=== PATIENT | female | born 1955 | race Caucasian/White ===

== ENCOUNTER 2019-08-19 20:12 | Emergency (ER) | payer SELFPAY ==
[~2019-08-19] VITALS: Ht 165.1 cm; Wt 56.0 kg
--- NOTE | 2019-08-19 20:52 | NUR ---
THIS IS A 64Y F THAT COMES IN TONIGHT FOLLOWING HER DAILY TX FOR COLORECTAL CA. PT GOT LABS DRAWN TODAY MD CALLED WITH RESULTS OF LOW H&H PT SENT HERE FOR BLOOD TRANSFUSION BY ONCOLOGIST. PER PT HER BP NORMALLY RUNS 80'S /40'S AND SHE HAS GOTTEN FLUID ALL DAY AND DOES NOT WANT ANY MORE FLUID STS SHE JUST NEEDS BLOOD TRANSFUSION. PT CONNECTED TO MONITORING, AT BEDSIDE, PIV STARTED LABS DRAWN AND SENT.
[2019-08-19 21:12] LABS: ALBUMIN 2.8 g/dL (3.4-5.0); ANION GAP 7 mmol/L (5-15); CALCIUM 7.6 mg/dL (8.5-10.1); CHLORIDE 105 mmol/L (98-107)
[2019-08-19 21:13] LABS: CREATININE 0.72 mg/dL (0.55-1.02)
[2019-08-19 21:26] LABS: MEAN CORPUSCULAR HEMOGLOBIN 26.2 pg (27.0-34.8); MEAN CORPUSCULAR HGB CONC 31.7 g/dL (32.4-35.8); MEAN CORPUSCULAR VOLUME 82.7 fL (80-100); MEAN PLATELET VOLUME 7.9 fL (7.4-10.4); PLATELET COUNT 465 x10^3/uL (130-400); RED BLOOD COUNT 2.48 x10^6/uL (3.82-5.3); RED CELL DISTRIBUTION WIDTH 20.6 % (9.6-15.2)
--- NOTE | 2019-08-19 21:27 | NUR ---
LAB CALLED WITH CRITICAL H&H AT THIS TIME MD TO BE UPDATED
--- NOTE | 2019-08-19 21:43 | NUR ---
ERP AT BEDSIDE TO ASSESS PT AND DISCUSS POC AND BLOOD TRANSFUSION PROCESS/ RISKS. CONSENT OBTAINED AT THIS TIME. PT CONTINUES TO HAVE A FEVER AT 101 PT AGREES TO CULTURES TO BE DRAWN BUT DOES NOT AGREE TO COVID SWAB, PT ALSO STILL HYPOTENSIVE ERP AWARE, PT DOES NOT WANT FLUID AT ALL. ERP AWARE.
--- NOTE | 2019-08-19 21:48 | NUR ---
PT MURALI DANIELS, MD TO BEDSIDE TO DISCUSS CONCERNS AT THIS TIME
[2019-08-19 21:49] LABS: BASOPHILS % (AUTO) 0 % (0-1); EOSINOPHILS % (AUTO) 0 % (1-7); LYMPHOCYTES # (AUTO) 0.24 x10^3/uL (1-3.4); LYMPHOCYTES % (AUTO) 2 % (22-44); MD SCAN; MONOCYTES # (AUTO) 0.01 x10^3/uL (0.2-0.8); MONOCYTES % (AUTO) 0 % (2-9); NEUTROPHILS # (AUTO) 9.91 x10^3/uL (1.8-6.8); NEUTROPHILS % (AUTO) 98 % (42-75)
[2019-08-19 22:16] VITALS: BP 78/41
--- NOTE | 2019-08-19 22:18 | NUR ---
BLOOD STARTED, VERIFIED WITH JULIO SHERWOOD. VSS, BILLY PT EDUCATED ON S/S TO BE AWARE OF
[2019-08-19 22:33] VITALS: BP 84/43
--- NOTE | 2019-08-19 22:35 | NUR ---
BLOOD INFUSING NO REACTIONS NOTED, PT REMAINS HYPOTENSIVE. ERP AWARE
--- NOTE | 2019-08-19 23:02 | NUR ---
BLOOD CONTINUES TO INFUSE, NO REACTIONS NOTED, PT DENIES S/S OF REACTIONS
--- NOTE | 2019-08-19 23:07 | NUR ---
BLOOD FINISHED INFUSING AT THIS TIME NO REACTIONS NOTED
[2019-08-19 23:24] VITALS: BP 80/39
--- NOTE | 2019-08-19 23:43 | NUR ---
PT GIVEN DC PAPERS AND EDUCATION, PT STS SHE KNOWS THE RISK OF GOING HOME AND NOT SEEKING FURTHER TX. PT AND SPOUSE INSIST ON GOING HOME TONIGHT. PT WHEELED TO DC DESK AT HER SIDE. PIV DC.
[2019-08-20] MEDS ORDERED: METH2.5T PO (13:22)
[2019-08-20] MEDS ORDERED: ASPI-515 PO (13:22)
[2019-08-20] MEDS ORDERED: ATOR-2 PO (13:22)
[2019-08-20] MEDS ORDERED: METF500T17 PO (13:23)
== END 2019-08-19 23:45 | disposition home or self-care (01) ==
LOC: ED 22:59
DX: D64.81 Anemia due to antineoplastic chemotherapy (principal); R00.0 Tachycardia, unspecified; Z92.21 Personal history of antineoplastic chemotherapy
CPT/HCPCS: 36415; 36430; 80048; 82040; 85025; 86850; 86900; 86923; 99285; P9040

== ENCOUNTER 2019-08-20 12:54 | Inpatient (IN) | payer OTHER ==
[2019-08-20] VITALS (8 sets, daily range): BP systolic 84–95; BP diastolic 48–61
[~2019-08-20] VITALS: Ht 165.1 cm; Wt 59.2 kg
[2019-08-20] MEDS ORDERED: ATOR-2 PO (13:22)
[2019-08-20] MEDS ORDERED: ASPI-515 PO (13:22)
[2019-08-20] MEDS ORDERED: METH2.5T PO (13:22)
[2019-08-20] MEDS ORDERED: METF500T17 PO (13:23)
--- NOTE | 2019-08-20 13:23 | NUR ---
PT IN GOWN IN [facility]. PT ATTACHED TO VS MONITORS. VSS AT THIS TIME. PT EDUCATED ON ER PROCESS AND VERBALIZES UNDERSTANDING. PIV ESTABLISHED AND LABS DRAWN AT THIS TIME. PT PROVIDED WARM BLANKET AND CALL LIGHT. AWAITING ERP FOR PT ASSESSMENT AT THIS TIME. PT HAS SPOUSE AT AND DENIES ANY OTHER NEEDS AT THIS TIME.
[2019-08-20 14:39] LABS: ALBUMIN 2.8 g/dL (3.4-5.0); ANION GAP 6 mmol/L (5-15); CALCIUM 8.2 mg/dL (8.5-10.1); CHLORIDE 107 mmol/L (98-107); CREATININE 0.71 mg/dL (0.55-1.02)
[2019-08-20 14:45] LABS: MEAN CORPUSCULAR HEMOGLOBIN 26.9 pg (27.0-34.8); MEAN CORPUSCULAR HGB CONC 32.7 g/dL (32.4-35.8); MEAN CORPUSCULAR VOLUME 82.4 fL (80-100); MEAN PLATELET VOLUME 8.3 fL (7.4-10.4); PLATELET COUNT 386 x10^3/uL (130-400); RED BLOOD COUNT 2.68 x10^6/uL (3.82-5.3); RED CELL DISTRIBUTION WIDTH 19.3 % (9.6-15.2)
--- NOTE | 2019-08-20 14:51 | NUR ---
CRITICAL LAB RECEIVED AND REPORTED TO ERP AT THIS TIME.
[2019-08-20 15:08] LABS: BASOPHILS # (AUTO) 0.02 x10^3/uL (0-0.1); BASOPHILS % (AUTO) 0 % (0-1); EOSINOPHILS % (AUTO) 0 % (1-7); LYMPHOCYTES # (AUTO) 0.86 x10^3/uL (1-3.4); LYMPHOCYTES % (AUTO) 8 % (22-44); MD SCAN; MONOCYTES # (AUTO) 0.45 x10^3/uL (0.2-0.8); MONOCYTES % (AUTO) 4 % (2-9); NEUTROPHILS # (AUTO) 9.67 x10^3/uL (1.8-6.8); NEUTROPHILS % (AUTO) 88 % (42-75)
--- NOTE | 2019-08-20 16:07 | NUR ---
PT AMBULATES TO RESTROOM AT THIS TIME. PT REFUSING CROSS AND TYPE DRAW FROM LAB AT THIS TIME.
--- NOTE | 2019-08-20 17:49 | NUR ---
PT PROVIDED ADDITIONAL WARM BLANKET. PURPLE SHEET TUBED TO BLOOD BANK TO RELEASE BLOOD AT THIS TIME.
[2019-08-20] MEDS ORDERED: SODIUM CHLORIDE FLUSH 10ML SYR IVF PRN (18:00)
[2019-08-20] MEDS ORDERED: POLYETHYLENE GLYCOL 17 GM PACKET PO PRN (18:30)
[2019-08-20] MEDS ORDERED: ONDANSETRON ODT 4 MG PO PRN (18:30)
[2019-08-20] MEDS ORDERED: ACETAMINOPHEN 325 MG TABLET PO PRN (18:30)
[2019-08-20] MEDS ORDERED: BISACODYL 10 MG SUPP PR PRN (18:30)
--- NOTE | 2019-08-20 18:36 | NUR ---
ATTEMPTED TO CALL REPORT TO FLOOR RN. PER FLOOR, NURSE DOESN'T START SHIFT UNTIL [phone]
--- NOTE | 2019-08-20 19:10 | NUR ---
REPORT OF PT TO RN SHOLA WHO IS ASSUMING CARE OF PT AT THIS TIME. ALL QUESTIONS ANSWERED. REPORT OF PT TO RN JULIO ON FLOOR WHO IS ULTIMATELY ASSUMING CARE OF THIS PT. ALL QUESTIONS ANSWERED. VSS AND UPDATED IN TRANSFUSION SECTION OF PT CHART. TECH PAGED FOR TRANSPORT OF PT TO THE FLOOR AT THIS TIME.
[2019-08-20] MEDS ORDERED: SODIUM CHLORIDE FLUSH 10ML SYR IVF SCH (21:00)
[2019-08-21 00:06] VITALS: BP 107/68
[2019-08-21 00:07] VITALS: BP 107/68
[2019-08-21 04:35] LABS: ANION GAP 8 mmol/L (5-15); CALCIUM 8.3 mg/dL (8.5-10.1); CHLORIDE 111 mmol/L (98-107)
[2019-08-21 04:37] LABS: CREATININE 0.56 mg/dL (0.55-1.02)
[2019-08-21 04:38] LABS: BASOPHILS # (AUTO) 0.01 x10^3/uL (0-0.1); BASOPHILS % (AUTO) 0 % (0-1); EOSINOPHILS % (AUTO) 0 % (1-7); LYMPHOCYTES # (AUTO) 1.33 x10^3/uL (1-3.4); LYMPHOCYTES % (AUTO) 12 % (22-44); MD NO; MEAN CORPUSCULAR HEMOGLOBIN 28.5 pg (27.0-34.8); MEAN CORPUSCULAR HGB CONC 33.1 g/dL (32.4-35.8); MEAN CORPUSCULAR VOLUME 86.2 fL (80-100); MEAN PLATELET VOLUME 8.2 fL (7.4-10.4); MONOCYTES # (AUTO) 0.93 x10^3/uL (0.2-0.8); MONOCYTES % (AUTO) 8 % (2-9); NEUTROPHILS # (AUTO) 8.97 x10^3/uL (1.8-6.8); NEUTROPHILS % (AUTO) 80 % (42-75); PLATELET COUNT 320 x10^3/uL (130-400); RED BLOOD COUNT 3.24 x10^6/uL (3.82-5.3); RED CELL DISTRIBUTION WIDTH 18.4 % (9.6-15.2)
[2019-08-21] MEDS ORDERED: SENNA/DOCUSATE TABLET PO SCH (09:00)
== END 2019-08-21 08:41 | disposition left against medical advice (07) | DRG 812 ==
LOC: ED 14:19 → EDIP 18:58 → 3WST 19:23
PROVIDERS: ADMIT Internal Medicine; ATTEND Hospitalist
PROC: 30233N1 Transfusion of Nonautologous Red Blood Cells into Peripheral Vein, Percutaneous Approach (ICD-10-PCS; principal; 2019-08-20)
DX: D64.81 Anemia due to antineoplastic chemotherapy (principal); C19 Malignant neoplasm of rectosigmoid junction; T45.1X5A Adverse effect of antineoplastic and immunosuppressive drugs, initial encounter; Z53.29 Procedure and treatment not carried out because of patient's decision for other reasons; Z82.0 Family history of epilepsy and other diseases of the nervous system; Z82.49 Family history of ischemic heart disease and other diseases of the circulatory system; Z85.048 Personal history of other malignant neoplasm of rectum, rectosigmoid junction, and anus; Z90.710 Acquired absence of both cervix and uterus; Z83.3 Family history of diabetes mellitus; Y92.89 Other specified places as the place of occurrence of the external cause; Z88.2 Allergy status to sulfonamides; Z88.1 Allergy status to other antibiotic agents
CPT/HCPCS: 36415; 36430; 80048; 82040; 85025; 86850; 86900; 86923; 99285; G0378; P9040